=== PATIENT | female | born 1990 | race Caucasian/White ===

== ENCOUNTER 2021-04-15 05:30 | Outpatient (RCR) | payer BC ==
[~2021-04-15] VITALS: Ht 152.4 cm; Wt 113.8 kg
[~2021-04-15 05:30] MED LIST: ALBU0.63 IH; ALPR0.25 PO; CETI10TA49 PO; HYDR12.56 PO; MONT10TA32 PO; OMEP40CA6 PO; RT-ALBUINH IH; TRAZ-227 PO
== END 2021-04-15 13:28 | disposition home or self-care (01) ==
LOC: PREOP 05:30
PROVIDERS: ATTEND Surgery
DX: Z01.812 Encounter for preprocedural laboratory examination (principal); K21.9 Gastro-esophageal reflux disease without esophagitis; Z20.822 Contact with and (suspected) exposure to COVID-19
CPT/HCPCS: 87635

== ENCOUNTER 2021-04-16 10:44 | Day surgery (SDC) | payer BC ==
[~2021-04-16] VITALS: Ht 152.4 cm; Wt 113.8 kg
[2021-04-16] MEDS ORDERED: LACTATED RINGERS 1,000 ML IV STA (10:46)
[2021-04-16] MEDS ORDERED: HURRICAINE EXT TUBE (BENZOCAINE) XX PRN (11:00)
[2021-04-16 11:15] VITALS: BP 160/102
--- NOTE | 2021-04-16 12:15 | Progress Note-Pre Operative ---
Pre-Operative Progress Note H&P Reviewed The H&P was reviewed, patient examined and no changes noted. Date Seen by Provider: Apr 16, 2021 Time Seen by Provider: 12:15 Date H&P Reviewed: Apr 16, 2021 Time H&P Reviewed: 12:15 Pre-Operative Diagnosis: gerd ZAINAB GOSS DO Apr 16, 2021 12:15
[2021-04-16] MEDS ORDERED: proPOfol 200 MG/20 ML (DIPRIVAN) VIAL IV ONE (12:22)
[2021-04-16] MEDS ORDERED: MIDAZOLAM 2 MG/2 ML (VERSED) VIAL ONE (12:22)
[2021-04-16 12:35] VITALS: BP 149/87
--- NOTE | 2021-04-16 12:39 | Discharge Inst-Simple/Standard ---
Discharge Inst-Standard Patient Instructions/Follow Up Plan of Care/Instructions/FU: 2 weeks Harris Activity as Tolerated: Yes Discharge Diet: Regular Diet ZAINAB GOSS DO Apr 16, 2021 12:39
--- NOTE | 2021-04-16 12:39 | Progress Note-Post Operative ---
Post-Operative Progess Note Surgeon (s)/Solar Power Installer (s) Surgeon ZAINAB GOSS DO Solar Power Installer: na Pre-Operative Diagnosis gerd Post-Operative Diagnosis slight hiatal hernia otherwise normal egd Procedure & Operative Findings Date of Procedure 04/16/21 Procedure Performed/Findings egd c biopsies Anesthesia Type per geomorphology teacher Estimated Blood Loss Estimated blood loss (mL): none Specimens/Packing Specimens Removed antrum, ge ZAINAB GOSS DO Apr 16, 2021 12:39
[2021-04-16 12:40] VITALS: BP 138/80
--- NOTE | 2021-04-16 12:40 | Anesthesia-General Post-Op ---
MAC Patient Condition Mental Status/LOC: Same as Preop Cardiovascular: Satisfactory Nausea/Vomiting: Absent Respiratory: Satisfactory Pain: Controlled Complications: Absent Post Op Complications Complications None Follow Up Care/Instructions Patient Instructions None needed. Anesthesiology Discharge Order Discharge Order Patient is doing well, no complaints, stable vital signs, no apparent adverse anesthesia problems. No complications reported per nursing. ROSAURA ZAMARRIPA CRNA Apr 16, 2021 12:40
[2021-04-16 12:45] VITALS: BP 138/80
[2021-04-16 12:58] VITALS: BP 139/80
--- NOTE | 2021-04-16 17:31 | OPERATIVE REPORT ---
DATE OF SERVICE: 04/16/2021 PREOPERATIVE DIAGNOSES: Gastroesophageal reflux disease. POSTOPERATIVE DIAGNOSES: Slight hiatal hernia, otherwise normal esophagogastroduodenoscopy. PROCEDURE: EGD with biopsies. SURGEON: Zainab Iglesias DO ANESTHESIA: Per [employer] FLOOR REFINISHER. ESTIMATED BLOOD LOSS: None. COMPLICATIONS: None. INDICATIONS: The patient is a 30-year-old female with GERD symptoms. She understands risks and benefits of procedure and wished to proceed. Consent was signed in the chart. DESCRIPTION OF PROCEDURE: The patient was taken to the endoscopy suite, placed in left lateral recumbent position. Timeout was performed. Scope was inserted in mouth, down the esophagus, stomach and into the duodenum without difficulty. There were no polyps, masses or ulcerations within the duodenum. Scope was slowly retracted back into the stomach where it was further insufflated. No polyps, masses or ulcerations within the stomach. Biopsy of the antrum was obtained. Scope was retroflexed noting a very small hiatal hernia, no other pathology noted. Scope was returned to its normal position, slowly withdrawn to distal esophagus. Biopsy of the GE junction was obtained. No polyps, masses or ulcerations. Scope was then slowly retracted until completely removed. The patient tolerated procedure well without any complications. She was taken to recovery room in stable condition. RECOMMENDATIONS: The patient to continue on Protonix. The patient will follow up in 2 weeks to discuss pathology results. Any issues before that be seen at that time. Job ID: [id number] DocumentID: [id number] Dictated Date: 04/16/2021 12:45:25 Acidity Tester Date: 04/16/2021 17:30:58 Dictated By: ZAINAB IGLESIAS DO
== END 2021-04-16 13:05 | disposition home or self-care (01) ==
LOC: ENDO 10:44
PROVIDERS: ATTEND Surgery
DX: K29.50 Unspecified chronic gastritis without bleeding (principal); K44.9 Diaphragmatic hernia without obstruction or gangrene; K31.A0 Gastric intestinal metaplasia, unspecified; K21.00 Gastro-esophageal reflux disease with esophagitis, without bleeding; I10 Essential (primary) hypertension; E78.00 Pure hypercholesterolemia, unspecified; E78.5 Hyperlipidemia, unspecified; F41.9 Anxiety disorder, unspecified; J45.909 Unspecified asthma, uncomplicated; Z79.899 Other long term (current) drug therapy

== ENCOUNTER 2021-05-14 12:07 | Outpatient (CLI) | payer SELFPAY ==
[~2021-05-14] VITALS: Ht 152.4 cm; Wt 113.4 kg
[2021-05-14 12:00] VITALS: BP 142/101
[~2021-05-14 12:07] MED LIST changes: +MONT-40 PO; -MONT10TA32 PO
[2021-05-14] MEDS ORDERED: EPINEPHrine INJECTION 1 MG/ML AMP IM PRN (13:30)
[2021-05-14] MEDS ORDERED: CASIRIVIMAB/IMDEVIMAB 1,200 MG in NS (IVPB) 250 ML IV ONE (13:30)
[2021-05-14] MEDS ORDERED: ONDANSETRON 4 MG/2 ML (SDV) Z0FRAN IV PRN (13:30)
[2021-05-14] MEDS ORDERED: ACETAMINOPHEN 500 MG TAB (TYLENOL) PO PRN (13:30)
[2021-05-14] MEDS ORDERED: diphenhydrAMINE 50 MG/ML INJ (BENADRYL) IV PRN (13:30)
[2021-05-14 14:39] VITALS: BP 145/94
== END 2021-05-14 15:19 | disposition home or self-care (01) ==
LOC: INFUSION 12:07
PROVIDERS: ATTEND Nurse Practitioner Family
DX: U07.1 COVID-19 (principal)